=== PATIENT | female | born 1960 | race African-American/Black ===

== ENCOUNTER → 2018-04-08 | Outpatient (CLI) | payer OTHER ==
[2014-11-25 17:10] VITALS: BP 125/70
--- NOTE | 2018-04-08 10:36 | RAD ---
Examination: Ultrasound abdomen limited HISTORY: History of right upper quadrant pain COMPARISON: None available FINDINGS: The visualized pancreas grossly appears unremarkable. Visualized IVC is within normal limits of dimension. The echogenicity liver grossly appears unremarkable. No evidence of gallstones. The common bile duct measures 4 mm in diameter. The right kidney measures 11.1 cm. IMPRESSION: Unremarkable ultrasound right upper quadrant abdomen. Electronically signed by: Rasta Fuller MD (04/08/2018 10:33 AM) [id number]
--- NOTE | 2018-04-09 10:06 | RAD ---
Exam performed: Nuclear medicine hepatobiliary scan. History: constipation, bloating Following intravenous administration of 5.5 mCi of Choletec tagged with Tc, sequential gamma camera images of the right upper quadrant of the abdomen were obtained. There is prompt accumulation of radionuclide in the liver which appears to be unremarkable Prompt accumulation in the central intrahepatic biliary radicals, gallbladder, common bile duct and small bowel is noted. Patient was given a fatty meal and gallbladder ejection fraction was calculated which measures 82% Impression: Normal nuclear hepatobiliary scan with normal gallbladder ejection fraction measuring 82%. Electronically signed by: Rasta Fuller MD (04/09/2018 10:03 AM) [id number]
== END | disposition home or self-care (01) ==
LOC: US 09:45
PROVIDERS: ATTEND Internal Medicine Gastroenterology
DX: R10.11 Right upper quadrant pain (principal); Z90.710 Acquired absence of both cervix and uterus
CPT/HCPCS: 76705; 78226; 96374; 96375; A9537

== ENCOUNTER → 2019-09-04 | Outpatient (CLI) | payer OTHER ==
[2014-11-25 17:10] VITALS: BP 125/70
[~2019-09-04] MED LIST: IOHEXOL 240 MG/ML 50ML VIAL. PO ONE; IOHEXOL 300 MG/ML 100ML VIAL. IV ONE
--- NOTE | 2019-09-04 10:24 | RAD ---
Examination: CT ABD PELV W/ORAL IV CONTRAST History: Lower abdominal pain Comparison/Correlation: 11/25/2014 CT abdomen and pelvis without contrast Findings: Axial images of the abdomen and pelvis were obtained following IV and oral contrast. Sagittal and coronal reformatted images were provided. Visualized lung bases are unremarkable. Liver is normal. Gallbladder fossa is unremarkable. Calcified granulomas involving the spleen. Pancreas is unremarkable. Adrenal glands are unremarkable. Kidneys are unremarkable. Moderate quantity of stool is present in the colon. Appendix is normal. Subtle stranding about the distal descending colon is present of concern for acute diverticulitis. No extraluminal gas or loculated collection. Urinary bladder is unremarkable. No ascites or pelvic free fluid. No enlarged abdominal or pelvic lymph nodes. No acute bony process. Impression: Subtle stranding and edema about the distal descending colon which is of concern for diverticulitis. No abscess or loculated collection otherwise. No extraluminal gas. PQRS Compliance Statement: One or more of the following individualized dose reduction techniques were utilized for this examination: 1. Automated exposure control 2. Adjustment of the mA and/or kV according to patient size 3. Use of iterative reconstruction technique Electronically signed by: Jarod Maier MD (09/04/2019 10:22 AM) [facility]
== END | disposition home or self-care (01) ==
LOC: CT 07:49
PROVIDERS: ATTEND Family Medicine
DX: D73.89 Other diseases of spleen (principal)
CPT/HCPCS: 74177; Q9966; Q9967